=== PATIENT | female | born 1995 | race Caucasian/White ===

== ENCOUNTER 2022-08-22 20:15 | Emergency (ER) | payer OTHER, SELFPAY ==
--- NOTE | ~2022-08-22 | CT_ITS ---
EXAMINATION: CT abdomen pelvis w con DATE: 08/23/2022 00:00 INDICATION: Right-sided abdominal pain, nausea and vomiting TECHNIQUE: Computed tomography (CT) of the abdomen and pelvis was performed with 100 CC Omnipaque 350 intravenous contrast. Automated exposure control and iterative reconstruction technique were employe d. Exam dose: 1620.29 mGy-cm total exam DLP. COMPARISON: None. FINDINGS: The lung bases are clear of infiltrate or consolidation. Normal heart size. No pericardial or pleural effusion. No hepatic space-occupying mass lesion. The gallbladder appears normal. No bile duct or pancreatic du ct dilatation. No pancreatic mass lesion or calcification. Normal splenic size. Normal morphology of the adrenal glands. 9 mm left renal cyst. The kidneys are otherwise unremarkable. No urinary tract calculus or hydrourete ronephrosis. Normal caliber of the abdominal aorta. No intraperitoneal or retroperitoneal or pelvic mass lesion or adenopathy or ascites. Normal appendix. No bowel obstruction, bowel wall thickening, pneumatosis or intraperitoneal free air . Small fat-containing umbilical hernia. Bilateral L5 pars interarticularis defects are noted, without associated spondylolisthesis. Included skeletal structures are otherwise unremarkable. IMPRESSION: Normal appendix Bilateral L5 pars interarticularis defects Reviewed, dictated and finalized at [facility]. Reviewed, dictated and finalized at location A. K ROOM ATTENDANT
[2022-08-22 21:08] VITALS: BP 158/117; PULSE 79; RESP 16; TEMP 36.1; O2SAT 99
[2022-08-22 22:47] LABS: Basophils Absolute Auto 0.1 K/mm3 (0.0-0.1); Basophils Percent Auto 0.4 % (0.2-1.2); Eosinophils Absolute Auto 0.1 K/mm3 (0-0.3); Eosinophils Percent Auto 0.6 % (0-4.4); Hemoglobin 14.4 g/dL (12.0-15.0); Immature Granulocyte Absolute 0.07 K/mm3 (0.00-0.031); Immature Granulocyte Percent A 0.5 % (0-0.5); Lymphocytes Absolute Auto 1.58 K/mm3 (0.9-3.2); Lymphocytes Percent Auto 11.2 % (18.3-44.2); Mean Corpuscular HGB Conc 32.7 g/dl (32-36); Mean Corpuscular Hemoglobin 28.6 pg (26-34); Mean Corpuscular Volume 87.3 fl (80-100); Mean Platelet Volume 11.1 fl (7.4-10.4); Monocytes Absolute Auto 0.4 K/mm3 (0.1-0.6); Neutrophils Absolute Auto 11.9 K/mm3 (1.3-6.7); Neutrophils Percent Auto 84.3 % (45.5-73.1); Platelet Count Result 305 k/mm3 (150-375); Red Blood Count 5.04 M/mm3 (4.2-5.4); White Blood Count 14.1 K/mm3 (4.5-10.0)
[2022-08-22 22:52] LABS: Appearance Urine Clear (Clear); Bilirubin Urine Negative (Negative); Blood Urine Trace-intact (Negative); Color Urine Yellow (Yellow); Glucose Urine UA Negative (Negative); Ketones Urine 1+ mg/dL (Negative); Leukocyte Esterase Ur Negative LEU/UL (Negative); Nitrate Urine Negative (Negative); Protein Urine 1+ mg/dL (Negative); Specific Grav Ur >= 1.030 (1.001-1.035); Urobilinogen Urine 0.2 mg/dL (<2.0)
[2022-08-22 22:56] LABS: Alanine Aminotransferase 21 U/L (6-35); Albumin Level 4.5 g/dL (3.5-5.1); Alkaline Phosphatase 104 U/L (38-126); Anion Gap 11 mmol/L (8-16); Aspartate Amino Transferase 24 U/L (14-36); Bilirubin,Total 0.5 mg/dL (0.2-1.3); Blood Urea Nitrogen 13 mg/dL (7-17); Calcium 8.7 mg/dL (8.4-10.2); Carbon Dioxide 24 mmol/L (22-30); Chloride 103 mmol/L (98-107); Estimated CRCL calculation 148 ml/min; Estimated Glomerular Filt Rate > 60; Glucose 152 mg/dL (65-110); Lipase 47 U/L (23-300); Sodium 138 mmol/L (137-145)
--- NOTE | 2022-08-22 22:56 | ED.ABDPAIN ---
HPI - Abdominal Pain General Chief Complaint: Abdominal Pain Stated Complaint: right sided abdominal pain x 1 hour Time Seen by Provider: 08/22/22 22:30 Source: RN notes reviewed History of Present Illness HPI narrative: Patient presents emergency department from home for abdominal pain. Patient states abdominal pain began approximately 630 PM this evening. The pain is located in the right side the abdomen does not radiate described as sharp and stabbing in nature. States has been associated with nausea and vomiting. Denies any fevers or chills chest pain shortness of breath diarrhea or any other symptoms. States she not take anything for the pain Related Data Allergies Allergy/AdvReac Type Severity Reaction Status Date / Time amoxicillin Allergy Other Verified 08/22/22 20:17 benzocaine Allergy Other Verified 08/22/22 20:17 Review of Systems Review of Systems: Gen.: Denies fevers or chills ENT: Denies congestion Respiratory: Denies shortness of breath or cough CV: Denies chest pain or palpitations GI: D see HPI denies burning, urgency, frequency or hematuria Musculoskeletal: Denies back pain or muscle pain Neuro: Denies numbness, tingling, weakness or focal weakness Skin: Denies rash Except as documented, all other systems reviewed and negative PMFSH Past Medical History Medical History (Updated 08/23/22 @ 01:21 by Juvenal Lott DO) Hypertension Social History Social History (Updated 08/22/22 @ 23:05 by Juvenal Lott DO) Smoking status: Never smoker Exam Narrative: APPEARANCE: No acute distress, nontoxic, resting in bed HEENT: Normocephalic, atraumatic, OMM RESPIRATORY: No respiratory distress, clear to auscultation bilaterally with no rhonchi wheezing or rales CARDIOVASCULAR: RRR s murmur ABDOMINAL: Soft nondistended tender to palpation right upper quadrant and right lower quadrant no tenderness left upper quadrant and left lower quadrant no rebound or guarding MUSCULOSKELETAl: Moves all extremities. No clubbing, cyanosis or edema. NEURO: Awake and alert. Following commands, speech normal, no focal deficits SKIN:: Warm, dry. Normal Color PSYCHIATRIC: Normal affect/mood Course Course Emergency Course: : Discussed with Dr. Waldrop discussed CT results and lab results agrees to plan for discharge at this time patient started on Cipro and Flagyl Patient states that they are feeling much better at this time. States abdominal pain has resolved. Repeat abdominal exam shows the patient's abdomen to be soft and nontender. Discussed with patient results of workup and diagnosis. Discussed need for follow-up with primary care physician, reasons to return to the emergency department in proper use of medication. Patient understands and agrees to current treatment plan Vital Signs Vital signs: Vital Signs Temperature 96.9 F L 08/22/22 21:08 Pulse Rate 79 08/22/22 21:08 Respiratory Rate 16 08/22/22 21:08 Blood Pressure 158/117 H 08/22/22 21:08 Pulse Oximetry 99 08/22/22 21:08 Oxygen Delivery Room Air 08/22/22 21:08 Temperature 98.5 F 08/23/22 00:18 Pulse Rate 69 08/23/22 00:18 Respiratory Rate 18 08/23/22 00:18 Blood Pressure 147/94 H 08/23/22 00:18 Pulse Oximetry 99 08/23/22 00:18 Oxygen Delivery Room Air 08/22/22 21:08 MDM - Abdominal Pain MDM Narrative Medical decision making narrative: Patient's abdomen is soft without significant pain or signs of surgical abdomen on serial exams. Lab and x-ray evaluations are reviewed and patient is felt to be a reasonable candidate for outpatient management. Patient was instructed as to limitations of x-ray and laboratory evaluation and encouraged to return to ED or primary physician for repeat exam in 12 hours if continued or worsening pain Lab Data Result diagrams: 08/22/22 22:41 08/22/22 22:41 Labs: Lab Results 08/22/22 08/22/22 08/22/22 Range/Units 22:41 22:41 22:44 WBC 1
[2022-08-22 22:59] LABS: Bacteria Urine Trace /hpf; Mucus Urine Few /lpf; Squamous Epithelial Cell Urine Rare /hpf (Few); WBC Urine 0-3 /hpf
[2022-08-22 23:00] LABS: Add Urine Microscopic? YES
[2022-08-22] MEDS: SODIUM CHLORIDE 0.9% IV 1,000 ML 999 ML IV CONT (23:12)
[2022-08-22] MEDS: KETOROLAC 30 MG/ML VIAL (*BKC) IV PUSH (23:13)
[2022-08-22] MEDS: ONDANSETRON INJ 4 MG/2 ML VIAL IV PUSH (23:14)
[2022-08-23] VITALS (12 sets, daily range): BP systolic 140–147; BP diastolic 89–94; PULSE 69; RESP 18; TEMP 36.9; O2SAT 98–100
[2022-08-23] MEDS: CIPROFLOXACIN 500 MG TAB PO (01:39)
[2022-08-23] MEDS: metroNIDAZOLE 250 MG TABLET 500 MG PO (01:39)
== END 2022-08-23 01:49 | disposition home or self-care (01) ==
PROVIDERS: Emergency Provider Emergency Medicine; PCP Internal Medicine
DX: K52.9 Noninfective gastroenteritis and colitis, unspecified (principal); I10 Essential (primary) hypertension
CPT/HCPCS: 36415; 74177; 80053; 81001; 81025; 83690; 85025; 96361; 96374; 96375; 99284; A9270; J1885; J2405; J7030; Q9967

== ENCOUNTER 2022-10-01 07:28 | Outpatient (CLI) | payer OTHER, SELFPAY ==
--- NOTE | ~2022-10-01 | NM_ITS ---
EXAMINATION: NM hepatobiliary wo pharm DATE: 10/01/2022 12:34 INDICATION: Right upper quadrant abdominal pain. COMPARISON: CT abdomen and pelvis 08/22/2022 TECHNIQUE: 5.1 mCi Tc-99m mebrofenin (Choletec) was administered intravenously. Scintigraphic images of the abdomen were obtained for one hour. Delayed images were obtained at 3.5 hours. FINDINGS: There is normal clearance of radiotracer from the blood pool. There is homogeneous tracer u ptake by the liver. Activity progresses to the bowel. There is activity in the gallbladder at 3.5 ho urs. IMPRESSION: 1. Patent cystic duct. No evidence of acute cholecystitis. Reviewed, dictated and finalized at location A. FIRST ASSISTANT
== END 2022-10-01 07:29 | disposition home or self-care (01) ==
PROVIDERS: PCP Internal Medicine; Visit Provider Nurse Practitioner Family
DX: R10.11 Right upper quadrant pain (principal)
CPT/HCPCS: 78226; A9537

== ENCOUNTER 2022-10-06 07:37 | Outpatient (CLI) | payer OTHER, SELFPAY ==
--- NOTE | ~2022-10-06 | US_ITS ---
EXAMINATION: US abdomen limited DATE: 10/06/2022 08:13 INDICATION: Right upper quadrant pain TECHNIQUE: Multiple grayscale and Doppler ultrasound images of the abdomen were obtained. COMPARISON: CT, 08/22/2022 FINDINGS: The head and body of the pancreas are normal. The pancreatic tail is obscured by bowel gas. The liver is normal with normal echogenicity and echotexture. No surface nodularity. Normal hepatope jenny flow in the main portal vein. There are multiple stones in the nondistended gallbladder. No gallb ladder wall thickening or pericholecystic fluid. The normal common bile duct measures 5 mm. There was no sonographic [place] sign. IMPRESSION: 1. Cholelithiasis without evidence of cholecystitis. Reviewed, dictated and finalized at location B. ER TENDER
--- NOTE | ~2022-10-06 | XR_ITS ---
EXAMINATION: XR barium swallow w SBFT DATE: 10/06/2022 09:18 INDICATION: Right upper quadrant abdominal pain. TECHNIQUE: The patient drank thick barium, gas-producing crystals, and thin barium. Fluoroscopy of th e esophagus, stomach, and small bowel was performed. Fluoroscopy exposure time was 0.5 minutes. Radio graphs of the abdomen were obtained. The total number of images was 246. COMPARISON: CT abdomen and pelvis 08/22/2022 FINDINGS: ESOPHAGRAM: There is no mass or stricture of the esophagus. Esophageal motility is normal. There is no hiatal her jaymie. There was no gastroesophageal reflux with provocative maneuvers. The stomach shows a normal fold ing pattern. SMALL BOWEL SERIES: The small bowel shows a normal folding pattern. Specifically, the terminal ileum is normal. Transit t erick to the colon was 30 minutes. IMPRESSION: 1. Normal esophagram. 2. Normal small bowel series. Reviewed, dictated and finalized at location A. RETE SMOOTHER
== END 2022-10-06 07:38 | disposition home or self-care (01) ==
PROVIDERS: PCP Internal Medicine; Visit Provider Nurse Practitioner Family
DX: K80.20 Calculus of gallbladder without cholecystitis without obstruction (principal)
CPT/HCPCS: 74240; 76705

== ENCOUNTER 2022-11-15 11:06 | Outpatient (CLI) | payer OTHER, SELFPAY ==
--- NOTE | 2022-11-15 11:35 | ECG_ITS ---
Measurements Intervals [place] Rate: 71 P: 28 GA: 177 QRS: 33 QRSD: 102 T: 38 QT: 380 QTc: 415 Interpretive Statements SINUS RHYTHM NORMAL ECG NO PREVIOUS ECG AVAILABLE FOR COMPARISON Electronically Signed On 11-15-2022 16:55:41 WINDOW DRESSER by Vikram Olivia M.D.
[2022-11-15 11:42] LABS: Alanine Aminotransferase 22 U/L (6-35); Albumin Level 4.1 g/dL (3.5-5.1); Alkaline Phosphatase 71 U/L (38-126); Amylase 52 U/L (30-110); Aspartate Amino Transferase 25 U/L (14-36); Bilirubin,Total 0.6 mg/dL (0.2-1.3); Lipase 41 U/L (23-300)
== END 2022-11-15 11:07 | disposition home or self-care (01) ==
PROVIDERS: PCP Internal Medicine; Visit Provider Surgery
DX: K80.20 Calculus of gallbladder without cholecystitis without obstruction (principal); I10 Essential (primary) hypertension; Z01.818 Encounter for other preprocedural examination
CPT/HCPCS: 36415; 80076; 82150; 83690; 86850; 86900; 86901; 93005

== ENCOUNTER 2022-11-24 01:53 | Day surgery (SDC) | payer OTHER, SELFPAY ==
[2022-11-11 12:47] VITALS: BMI 51.6
--- NOTE | 2022-11-11 12:53 | PC.NURSE ---
Report to the Outpatient Waiting Room, entrance under the green pavilion located off [facility], at time 10:00 on date 11/24/22. Planned Procedure Time: 12:00. Time changes happen often and if your time is changed the preop area will call you the afternoon before. - You and your visitor will be asked to self-screen and do not enter if you have any COVID symptoms. - Only one visitor is requested with a max of two and NO children visitors are allowed at this time. - The patient visitor may be requested to leave or wait in car when not with patient due to distancing restrictions. - A mask is optional within the hospital at this time. Patients may have clear liquids (water, carbonated beverages, clear teas, apple juice) until 3 hours prior to surgery (9:00) with a maximum of 20 ounces. - No food from midnight until time of surgery Take the following medications with a SIP of water the morning of surgery: CARVEDILOL DO NOT STOP ANY OF YOUR OTHER PRESCRIPTION MEDICATIONS PRIOR TO SURGERY EXCEPT THE FOLLOWING Medications to discontinue per physician: N/A Date to take last dose: N/A Please no make-up, nail jordanian, hairspray, perfume, deodorant, or body powder the day of surgery. No jewelry (including any body piercings) or valuables the day of surgery, leave them at home. Please take a shower or bath the night before, or the morning of, surgery with an antibacterial soap (HIBICLENS). Wear comfortable, loose fitting clothing. - Jewelry must be removed prior to entering the operating room. Rings and piercings that are not removed may be cut off. - The hospital will not accept responsibility for valuables. - Please leave all valuables, including medications, at home the day of surgery. If you are going home after surgery, a licensed sprinkling truck driver must drive you home. - NO public transportation without another adult if you receive anesthesia. - We recommend that an adult stay with you for 24 hours following discharge. - We also recommend that you do not drive, make important decision, drink alcoholic beverages, or take any drugs that were not prescribed by your health care provider for at least 24 hours after your discharge time. Follow any additional instructions given to you from your surgeon. If you or anyone in your household have experienced Covid symptoms in the past week, please notify your surgeon or the nurse liaison at the phone number below for possible testing. Telephone instructions given to PT - PAMELA NORIEGA and asked if any additional questions and then verbalized understanding. Patient advised to call surgeon office or pre surgery nurse liaison [phone] if any additional questions.
[2022-11-24] VITALS (8 sets, daily range): BP systolic 139–163; BP diastolic 78–99; PULSE 54–77; RESP 16–25; TEMP 36.3–36.6; O2SAT 97–100
[2022-11-24] MEDS: LACTATED RINGERS 1,000 ML 30 ML IV CONT ×2 (10:45→14:46)
[2022-11-24] MEDS: ACETAMINOPHEN 500 MG TABLET 1000 MG PO (10:51)
[2022-11-24] MEDS: KETOROLAC 15 MG/ML VIAL (*BKC) IV PUSH (10:53)
--- NOTE | 2022-11-24 11:54 | P.PNAN_ITS ---
Anes - Initial Pre Proc Eval Procedure: Operation Date: 11/24/22 12:00 Proposed Procedures p Laparoscopic Cholecystectomy - Alayna Tineo MD Date/Time: 11/24/22 11:54 Surgeon: Alayna Tineo MD Pre Op Diagnosis: Chronic cholecystitis with Cholelithiasis Patient Data Age: 27 Gender: F Height: 1.68 m Weight: 141.6 kg Last Vital Signs Temp 36.6 C 11/24/22 10:14 Pulse 77 11/24/22 10:14 Resp 16 11/24/22 10:14 BP 163/99 H 11/24/22 10:14 Pulse Ox 100 11/24/22 10:14 O2 Del Method Room Air 11/24/22 10:14 Allergies Allergy/AdvReac Type Severity Reaction Status Date / Time amoxicillin Allergy Anaphylaxis Verified 11/24/22 10:17 benzocaine Allergy Anaphylaxis Verified 11/24/22 10:17 Home Medications Medication Instructions Recorded Confirmed Type carvedilol 12.5 mg tablet 12.5 mg PO Q12H 08/29/22 11/24/22 History Patient hx anesthesia problems: none Family hx anesthesia problems: other (grandmother ponv) Results Review: All pre-operative results and documents have been reviewed as part of the pre- operative evaluation. 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 Informed Consent: The patient's anesthetic plan and its attendant risks and benefits were discussed with the patient/family/POA. Questions were solicited and answers provided to the satisfaction of the patient/family/POA.
--- NOTE | 2022-11-24 12:06 | P.HP_ITS ---
H&P: HPI History of Present Illness Date/Time: 11/24/22 12:06 Chief Complaint: abdominal pain Narrative: 27 y/o female presents to office with complaints of RUQ abdominal pain associated with nausea & vomiting. She initially began experiencing symptoms 30 minutes after eating Chik-Gaurav-A a few weeks before . She went to ER day after after having a second attack & had CT done. This showed her gallbladder to be distended however there were no stones. She was given Tramadol & Zofran in the ER. & was discharged home from ER with oral Flagyl & Cipro. She continues to have RUQ abdominal pain although she feels that the symptoms may have improved slightly. She also had outpatient barium swallow w/SBFT performed on 10/06/22 which was normal. Abdominal u/s was also performed on 10/06/22 which showed cholelithiasis. HIDA scan was performed on 10/01/22 which showed patent cystic duct with activity in gallbladder at 3.5 hours. She has refrained from eating fast foods since her last attack. 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 Spiritual care concerns: No Meds Home Medications and Allergies Home Medications Medication Instructions Recorded Confirmed Type carvedilol 12.5 mg tablet 12.5 mg PO Q12H 08/29/22 11/24/22 History Allergies Allergy/AdvReac Type Severity Reaction Status Date / Time amoxicillin Allergy Anaphylaxis Verified 11/24/22 10:17 benzocaine Allergy Anaphylaxis Verified 11/24/22 10:17 Vital Signs Vital Signs - 24 hr 11/24/22 10:14 Temperature 36.6 C Pulse Rate 77 Respiratory Rate 16 Blood Pressure 163/99 H Pulse Oximetry 100 Oxygen Delivery Room Air Exam Const: General: cooperative, comfortable, no acute distress and obese Cardio: Rate: regular rate Rhythm: regular rhythm GI: Inspection: normal to inspection and non-distended GI Palp: No abdominal tenderness, Yes Soft to palpation, No Tenderness to palpation present (GI), No Guarding due to palpation present (GI) and No Rigid due to palpation Assessment and Plan Assessment and plan (1) Cholelithiasis: Code(s): K80.20 - Calculus of gallbladder without cholecystitis without obstruction Status: Acute Assessment and Plan: will setup for cholecystectomy
--- NOTE | 2022-11-24 12:08 | WPDHPUPDATE1 ---
History and Physical Update Update Date/Time: 11/24/22 12:08 History and Physical has been reviewed, including an updated exam of the patient. There are NO changes in the patient's condition. Risks, benefits, and alternatives have been discussed and questions answered. Patient agrees to proceed with procedure.
[2022-11-24] MEDS: ceFAZolin 3 GM/D5W 100 ML 100 ML IVPB (13:03)
[2022-11-24] MEDS: BUPIVACAINE/EPINEPHRINE 0.5% 10 ML VIAL 30 ML INFILTRATE (13:24)
--- NOTE | 2022-11-24 14:04 | W.PM.PROC2 ---
Procedure Note - Detailed Date of Procedure 11/24/22 Pre-op Diagnosis Chronic cholecystitis with cholelithiasis Post-op Diagnosis Same Procedure Performed Laparoscopic cholecystectomy Surgeon Alayna Tineo MD Anesthesia General Indications 27-year-old female presented to the office complaining of postprandial right upper quadrant abdominal pain associated with nausea and vomiting. Workup including imaging significant for cholecystitis, cholelithiasis. Findings Cholecystitis with cholelithiasis Description of Procedure The patient was taken to the operating room placed in the supine position. After adequate induction of general anesthesia, the patient was prepped and draped in normal sterile fashion. A time-out was then performed to verify the patient's identity as well as the procedure being performed. I then made a 5 mm incision in the infraumbilical region. Through this, a Veress needle was placed into the peritoneal cavity and CO2 gas was then insufflated. After adequate pneumoperitoneum was achieved, the Veress needle was removed and a 5 mm optiview trocar was placed through this incision under direct visualization. I then placed the laparoscope through this trocar site and under direct visualization placed a further 12 mm subxiphoid port as well as 2 additional 5 mm ports in the right upper abdomen. The gallbladder was then identified and was noted to be inflamed, distended, and full of gallstones. I was able to place a grasper at the dome of the gallbladder and this was retracted anterior and cephalad up over the liver. A 2nd retractor was then placed at the infundibulum and retracted laterally, this allowed visualization of the triangle of Calot. I then was able to visualize the cystic duct in its entirety from its proximal insertion into the gallbladder, to its distal junction with the common hepatic/common bile duct junction. At this point, I carefully skeletonized the proximal cystic duct with the [place] dissector. I then clipped and transected the proximal cystic duct. Next I visualized the cystic artery. Again the artery was skeletonized, clipped, and transected. I then used the Bovie cautery to take down the peritoneal attachments of the gallbladder off the liver bed. This was somewhat difficult given the amount of inflammation in the posterior space. Once the gallbladder specimen was completely detached, an endo-pouch was placed through the 12 mm port site. I then placed the gallbladder specimen into the Endo pouch and removed the endo-pouch from the 12 mm port site. The specimen will now be sent to pathology for further review. I then copiously irrigated the right upper quadrant. Hemostasis was noted in the liver bed, the clips were noted to be in good position on both the cystic duct stump and the cystic artery stump. No other pathology was noted in the right upper quadrant. I then moved the laparoscope to the subxiphoid port. No iatrogenic injury or other pathology was noted in the lower abdomen. I then closed the 12 mm trocar site under direct visualization using the Charli cone and 0 Vicryl suture. At this point, the abdomen was desufflated and all ports removed. All port sites were then closed with 4.O Monocryl subcuticular sutures. Dermabond was placed on each incision. The patient tolerated the procedure well, was extubated in the operating room postoperative and will be transferred to the recovery room in stable condition Estimated Blood Loss 5 Drains No Packing No Pathology Yes Complications No immediate complications Condition Stable Disposition PACU [facility] Billing Surgery - Charge Forward: Surgery Billing
[2022-11-24] MEDS: fentaNYL CITRATE INJ (*CRX) 100 MCG/2 ML VIAL 25 MCG IV PUSH ×4 (14:28→14:50)
--- NOTE | 2022-11-24 14:42 | SUR.PHASEI ---
1441: Simple mask removed.
[2022-11-24] MEDS: oxyCODONE HCL (*CRX) 5 MG TAB IR PO (15:26)
== END 2022-11-24 16:00 | disposition home or self-care (01) ==
PROVIDERS: PCP Internal Medicine; Visit Provider Surgery
PROC: 0FT44ZZ Resection of Gallbladder, Percutaneous Endoscopic Approach (ICD-10-PCS; CPT 47562; principal; 2022-11-24 12:00)
DX: K80.10 Calculus of gallbladder with chronic cholecystitis without obstruction (principal); I10 Essential (primary) hypertension; E66.01 Morbid (severe) obesity due to excess calories; Z68.43 Body mass index [BMI] 50.0-59.9, adult
CPT/HCPCS: 47562; 36415; 80076; 82150; 83690; 86850; 86900; 86901; 88304; 93005; A9270; J0330; J0690; J1100; J1170; J1885; J2250; J2405; J2704; J2710; J3010; J7030; J7120

== ENCOUNTER 2025-01-07 09:30 | Outpatient (CLI) | payer OTHER, SELFPAY ==
--- OUTSIDE RECORDS SUMMARY | 2025-01-07 09:35 | XMS_ITS | Data Portability ---
Author Organization [facility] Nereyda Posadas Address [address] [facility] [place] [address] Care Team Providers Care Toeing Stockings Name Role Phone DAVID MITCHELL Primary Care Provider Assessment Encounter Date Assessment Date Assessment LastModified by Organization Details LastModified Time 12/24/2023 12/24/2023 Discussed weight loss migraines anxiety and hypertension conservative measures for those still pharmacologic pharmacological therapy for anxiety and her hypertension follow-up in 3 months. [email or web address] Not available 12/24/2023 23:06:59 10/31/2024 10/31/2024 healthy lifestyl e care instructions blood work anxiety discussed hypertension discussed especially since her pressure is 142/92 she was not taking her medicine yet today I urged her to do that regularly and as prescribed she has had a little bit uptake and caffeine use and we will try to get her to walk a little more decrease caffeine watch salt and processed foods she will follow up in 4 months her forms were filled out for work [email or web address] Not available 11/27/2024 16:59:55 Plan of Treatment Reminders Order Date Submit Date Provider Last Modified By Organization Details Last Modified Time Details Appointments ANY 15 2024 09:00A Osmar Mitchell MD Not available Not available Not available Lab CMP, serum or plasma 2024 025 [email or web address] Not available 01/05/2025 10:09:04 CBC w/ auto diff 2024 025 [email or web address] Not available 01/05/2025 10:09:04 lipid panel, serum 2024 025 [email or web address] Not available 01/05/2025 10:09:04 hemoglobi n A1C/hemog lobin total, QN, blood 2024 025 [email or web address] Not available 01/05/2025 10:09:04 Referral None recorded. Procedures None recorded. Surgeries None recorded. Imaging None recorded. Medication Orders None recorded. Patient TargetsNo targets recorded. Patient Instructions Encounter Date Encounter Id Patient Instructions Last Modified By Organization Details Last Modified Time 10/31/2024 [id number] A healthy lifestyle: care instructions Not available 10/31/2024 16:43:59 Reason for Referral None Reported. Problems Name Problem SNOMED Code Status Onset Date Resolution Date Notes Provider Name and Address Organization Details Recorded Time Essential hypertension 89396469 Active 2023 David Mitchell MD Attn: Karol carcamo,[address] [place], [address], [facility] 4 23:07:41 Anxiety 83690385 Active 2023 David Mitchell MD Attn: Karol carcamo,[address] [place], [place], [address] [place] [address] 2, [facility] 4 23:07:41 Obesity 523056075 Active 2023 David Mitchell MD Attn: Karol carcamo,[address] [place], [address], [facility] 4 23:07:42 History of migraine 138809496 Active 2023 David Mitchell MD Attn: Karol carcamo,[address] [place], [address], [facility] 4 23:07:44 Problem Notes None recorded. Procedures Surgical History Date Name Laterality Status Provider Name and Address Organization Details Recorded Time Cholecystectomy completed Nargis Pedro MA [facility] 12/24/2023 14:18:05 Imaging Results None recorded. Procedure Notes None recorded. Medical Equipment None Reported. Allergies Allergen ID Allergen Name Allergen Category Reaction Reaction Severity Criticality Documentation Date Start Date Code Code System Note Provider Name and Address Organization Details Recorded Time 207794 benzocain e medicatio n Not available Not available Not available 11/30/2023 1399 RxNorm turns finge rs blue. Not Available Not Available Not Available Medications Name Sig Start Date Stop Date Status Note LastModified by Organization Details LastModified Time carvedilol 12.5 mg tablet TAKE 1/2 TABLET TWICE A DAY BY MOUTH active Not Available Not Available No t Available azithromycin 250 mg tablet TAKE 2 TABLETS BY MOUTH TODAY, THEN TAKE 1 TABLET DAILY FOR 4 DAYS DIRECTED active Not Available Not Available No t Available fluoxetine 10 mg capsule TAKE 1 CAPSULE BY MOUTH EVERY DAY active Not Available Not Available No t Available Vitals Date Recorded Body height Body mass index (BMI) Body weight Heart rate Body temperature Oxygen saturation Oxygen saturation in Arterial blood by Pulse oximetry Systolic blood pressure Diastolic blood pressure Provider Name and Address Organization Details Last Updated DateTime 4 167.64 cm 55.7 kg/m2 435138. 65 g 80 /min 98.4 [degF] 99 % 99 % 140 mm[Hg] 92 mm[Hg] Nargis Pedro MA [facility] 4 14:22:16 Date Recorded Body height Body mass index (BMI) Body weight Heart rate Oxygen saturation Oxygen saturation in Arterial blood by Pulse oximetry Systolic blood pressure Diastolic blood pressure Provider Name and Address Organization Details Last Updated DateTime 5 167.64 cm 57.8 kg/m2 539637. 51 g 82 /min 98 % 98 % 142 mm[Hg] 92 mm[Hg] Tracey Chaparro MA [facility] 5 14:15:51 Social History Question Answer Notes LastModified by Organizat ion Details LastModified Time Tobacco Smoking Status [facility] 12/24/2023 14:15:27 What Is Your Level Of Alcohol Consumption? Occasional Information not available 12/24/2023 Are You Blind Or Do You Have Difficulty Seeing? No Information n ot available 12/24/2023 In The 14 Days Before Symptom Onset, Have You Had Close Contact With A Laboratory-confirm ed COVID-19 While That Case Was Ill? No Information n ot available 10/31/2024 In The 14 Days Before Symptom Onset, Have You Had Close Contact With A Person Who Is Under Investigation For COVID-19 While That Person Was Ill? No Information not available 10/31/2024 Have You Been To An Area Known To Be High Risk For COVID-19? No Information not available 10/31/2024 Are You Currently Employed? Yes Information not available 10/31/2024 Are You Deaf Or Do You Have Serious Difficulty Hearing? No Information not available 12/24/2023 What Was The Date Of Your Most Recent Tobacco Screening? 10/31/2024 Information not available 10/31/2024 What Is Your Relationship Status? Single Information not available 12/24/2023 Do You Use Your Seat Belt Or Car Seat Routinely? Yes Information not available 10/31/2024 Do You Have Smoke And Carbon Monoxide Detectors In Your Home? Yes Information not available 10/31/2024 Do You Use Any Illicit Or Recreational Drugs? No Information not available 10/31/2024 Do You Use Sunscreen Routinely? Yes Information not available 10/31/2024 Do You Or Have You Ever Used Any Other Forms Of Tobacco Or Nicotine? No Information not available 10/31/2024 Sex: Female Functional Status Question Answer Note LastModified by Organization D etails LastModified Time Are you able to care for yourself? Yes Information n ot available 12/24/2023 Mental Status None recorded. Family History Relationship Description Onset Age of this Age Resolved Age Notes LastModified by Organization Details LastModified Time Brother Attention deficit hyperactivit y disorder [email or web address] Not available 12/23 14:18:24 Brother Hypertensive disorder [email or web address] Not available 2023 14:18:54 Brother Kidney disease renal glycos uria nondia betic [email or web address] Not available 12/24/2023 14:19:43 Father Coronary arterioscler osis [email or web address] Not available 2023 14:18:32 Father Heart disease [email or web address] Not available 2023 14:18:45 Father Hypertensive disorder [email or web address] Not available 2023 14:18:54 Father Hypercholest erolemia [email or web address] Not available 2023 14:19:03 Father Kidney disease renal glycos uria nondia betic apaytonma Not available 12/24/2023 14:19:43 Mother Diabetes mellitus [email or web address] Not available 2023 14:18:39 Mother Hypercholest erolemia [email or web address] Not available 2023 14:19:03 Medical History Condition Response Coronary Artery Disease N Other N High Blood Pressure Y Atrial Fibrillation N Kidney or Bladder Problems N Thyroid Problems N GI Problems N Depression N COPD N Blood Clots N Skin Problems N Anemia N Heart Attack ([place]) N Anxiety Disorder Y Diabetes N Muscle, Joint, or Bone Problems N Seizures/Epilepsy N Acid Reflux (GERD) N Cancer N Stroke N Asthma N Allergies N High Cholesterol N Hepatitis N Liver Disease N Headaches Y Heart Failure N Osteoporosis N Gynecological HistoryNo gynecological history recorded. Obstetrics History GPAL:G 0 P 0 0 0 0 Past Encounters Encounter ID Performer Location Encounter Start Date Encounter Closed Date Diagnosis/Indication Diagnosis SNOMED-CT Code Diagnosis ICD10 Code Diagnosis Note [id number] David Mitchell MD [facility] [place] [address] [place] [address] 12/24/2023 14:05:36 12/24/2023 15:06:48 Essential hypertension 86656929 I10 Anxiety 97071459 F41.9 Obesity 748426629 E66.9 History of migraine 1614 93357 Z86.69 [id number] David Mitchell MD [facility] [place] [address] [place] [phone] 10/31/2024 14:05:46 10/31/2024 14:52:06 Body mass index 40+ - severely obese 189212655 Z68.43 Morbid obesity 583132881 E66.01 Anxiety 46517073 F41.9 Essential hypertension 07572379 I10 Health Concerns Section Related Observation LastModified by Organization Detai ls LastModified Time None Recorded Concern Status LastModified by Organization Details LastModified Time None Recorded Advance Directives Directive None Recorded Payers Encounter Date Sequence Insurance Name Policy Number Policy Crawford Covered Member ID Crawford Member ID Guarantor Name 12/24/2023 1 [facility] (MEDICARE REPLACEMENT/A DVANTAGE - HMO) [id number] Krysta Sullivan [id number] Krysta Sullivan 10/31/2024 1 [facility] (PPO) [id number] Krysta Sullivan [id number] Krysta Sullivan Notes Date Note Type Note Provider Name and Address Organization Details Recorded Time 12/24/2023 text/html Hypertension blo od pressure suboptimal but a lot of stress at work headaches migraines stable obesity putting on some weight David Mitchell MD Attn: [address] [facility], [place], [address], [facility] 12/24/2023 23:08:02 10/31/2024 text/html hypertension blo od pressure noted she has been under a lot of stress at work needs some forms filled out for that as well. Anxiety up a little bit no SI or HI David Mitchell MD Attn: [address] [facility], [place], [address], [facility] 11/27/2024 17:00:30 OBGyn Episode No OBEpisode recorded.
--- OUTSIDE RECORDS SUMMARY | 2025-01-07 09:35 | XMS_ITS | Data Portability ---
Author Organization [facility] [employer] [place], Main Office Address [address] [place] [address] Assessment Encounter Date Assessment Date Assessment LastModified by Organization Details LastModified Time 01/08/2023 01/08/2023 Continue current therapy try some weight loss see me back in 4 months [email or web address] Not available 01/17/2023 21:54:48 04/30/2023 04/30/2023 Fluoxetine 10 mg daily side effects discussed blood work talked about injectable weight loss medications she is going to explore those I will see her back in 6 weeks [email or web address] Not available 04/30/2023 22:58:06 06/11/2023 06/11/2023 Caloric restriction continue carvedilol for blood pressure fluoxetine for anxiety follow-up in 6 months [email or web address] Not available 06/11/2023 14:13:19 Plan of Treatment Reminders Order Date Submit Date Provider Last Modified By Organization Details Last Modified Time Details Appointments None recorded . Lab HbA1c (hemoglo bin A1c), blood 023 04/30/20 23 [facility] (Lab), [address] [place], [address], 4 11:20:37 T3, free, serum or plasma 023 04/30/20 23 [facility] (Lab), [address] [place], [address], 3 20:24:55 TSH, serum or plasma 023 04/30/20 23 [facility] (Lab), [address] [place], [address], 3 20:27:08 T4, free, serum 023 04/30/20 [facility] (Lab), [address] [place], [address], 3 20:24:44 CMP, serum or plasma 023 04/30/20 [facility] (Lab), [address] [place], [address], 3 20:01:59 lipid panel, serum 023 04/30/20 [facility] (Lab), [address] [place], [address], 20:02:01 CBC w/ auto diff 023 04/30/20 [facility] (Lab), [address] [place], [address], 3 18:34:44 Referral None recorded . Procedures None recorded . Surgeries None recorded . Imaging None recorded . Medication Orders None recorded . Patient TargetsNo targets recorded. Patient InstructionsNo instructions recorded. Reason for Referral None Reported. Results Created Date Observation Date Name Description Value Unit Range Abnormal Flag Note LastModifiedBy Organization Detail LastModifiedTime 04/30/2004/30/2023 CBC/C OMPLE TE BLD COUNT W/DIF F white blood cells 7.6 x10'3 /uL 4.2-10 .8 Not Available [facility] (Lab) [address] [place], [address], 04/30/2023 18:34:44 04/30/20 23 04/30/2023 CBC/C OMPLE TE BLD COUNT W/DIF F red blood cells 4.85 x10'6 /uL 3.80-5 .20 Not Available [facility] (Lab) [address] [place], [address], 04/30/2023 18:34:44 04/30/20 23 04/30/2023 CBC/C OMPLE TE BLD COUNT W/DIF F hemoglobin 13.6 g/dL 12.0-1 5.6 Not Available [facility] (Lab) [address] [place], [address], 04/30/2023 18:34:44 04/30/20 23 04/30/2023 CBC/C OMPLE TE BLD COUNT W/DIF F hematocrit 42.5 % 35.7-4 5.7 Not Available [facility] (Lab) [address] [place], [address], 04/30/2023 18:34:44 04/30/20 23 04/30/2023 CBC/C OMPLE TE BLD COUNT W/DIF F mean red cell volume 87.6 fL 82.0-9 9.0 Not Available [facility] (Lab) [address] [place], [address], 04/30/2023 18:34:44 04/30/20 23 04/30/2023 CBC/C OMPLE TE BLD COUNT W/DIF F mean red cell hemoglobin 28.0 pg 27.0-3 3.0 Not Available [facility] (Lab) [address] [place], [address], 04/30/2023 18:34:44 04/30/20 23 04/30/2023 CBC/C OMPLE TE BLD COUNT W/DIF F mean RBC HGB concentratio n 32.0 g/dL 31.0-3 6.0 Not Available [facility] (Lab) [address] [place], [address], 04/30/2023 18:34:44 04/30/20 23 04/30/2023 CBC/C OMPLE TE BLD COUNT W/DIF F red cell distribution width 13.0 % 11.8-1 5.5 Not Available [facility] (Lab) [address] [place], [address], 04/30/2023 18:34:44 04/30/20 23 04/30/2023 CBC/C OMPLE TE BLD COUNT W/DIF F platelets 281 x10'3 /uL 150-40 0 Not Available [facility] (Lab) [address] [place], [address], 04/30/2023 18:34:44 04/30/20 23 04/30/2023 CBC/C OMPLE TE BLD COUNT W/DIF F mean platelet volume 11.7 fL 9.0-12 .4 Not Available [facility] (Lab) [address] [place], [address], 04/30/2023 18:34:44 04/30/20 23 04/30/2023 CBC/C OMPLE TE BLD COUNT W/DIF F neutrophils 61.3 % 39.0-7 2.0 Not Available [facility] (Lab) [address] [place], [address], 04/30/2023 18:34:44 04/30/20 23 04/30/2023 CBC/C OMPLE TE BLD COUNT W/DIF F lymphocytes 27.4 % 16.0-4 7.0 Not Available [facility] (Lab) [address] [place], [address], 04/30/2023 18:34:44 04/30/20 23 04/30/2023 CBC/C OMPLE TE BLD COUNT W/DIF F monocytes 7.4 % 5.0-12 .0 Not Available [facility] (Lab) [address] [place], [address], 04/30/2023 18:34:44 04/30/20 23 04/30/2023 CBC/C OMPLE TE BLD COUNT W/DIF F eosinophils 2.6 % 1.0-7. 0 Not Available [facility] (Lab) [address] [place], [address], 04/30/2023 18:34:44 04/30/2004/30/2023 CBC/C OMPLE TE BLD COUNT W/DIF F basophils 0.9 % 0.0-2. 0 Not Available [facility] (Lab) [address] [place], [address], 04/30/2023 18:34:44 04/30/20 23 04/30/2023 CBC/C OMPLE TE BLD COUNT W/DIF F immature granulocytes 0.4 % 0.00-0 .50 Not Available [facility] (Lab) [address] [place], [address], 04/30/2023 18:34:44 04/30/20 23 04/30/2023 CBC/C OMPLE TE BLD COUNT W/DIF F neutrophils, absolute count 4.63 x10'3 /uL 1.5-8. 0 Not Available [facility] (Lab) [address] [place], [address], 04/30/2023 18:34:44 04/30/20 23 04/30/2023 CBC/C OMPLE TE BLD COUNT W/DIF F lymphocytes, absolute count 2.07 x10'3 /uL 1.07-3 .43 Not Available [facility] (Lab) [address] [place], [address], 04/30/2023 18:34:44 04/30/20 23 04/30/2023 CBC/C OMPLE TE BLD COUNT W/DIF F monocytes, absolute count 0.56 x10'3 /uL 0.29-0 .99 Not Available [facility] (Lab) [address] [place], [address], 04/30/2023 18:34:44 04/30/20 23 04/30/2023 CBC/C OMPLE TE BLD COUNT W/DIF F eosinophils, absolute count 0.20 x10'3 /uL 0.02-0 .53 Not Available [facility] (Lab) [address] [place], [address], 04/30/2023 18:34:44 04/30/20 23 04/30/2023 CBC/C OMPLE TE BLD COUNT W/DIF F basophils, absolute count 0.07 x10'3 /uL 0.01-0 .08 Not Available [facility] (Lab) [address] [place], [address], 04/30/2023 18:34:44 04/30/20 23 04/30/2023 CBC/C OMPLE TE BLD COUNT W/DIF F immature granulocytes ,absolute 0.03 x10'3 /uL 0.00-0 .05 Not Available [facility] (Lab) [address] [place], [address], 04/30/2023 18:34:44 04/30/20 23 04/30/2023 CBC/C OMPLE TE BLD COUNT W/DIF F nucleated red blood cells 0.0 % -0 Not Available [facility] (Lab) [address] [place], [address], 04/30/2023 18:34:44 04/30/20 23 04/30/2023 CBC/C OMPLE TE BLD COUNT W/DIF F NRBC# 0.00 x10'3 /uL Not Available [facility] (Lab) [address] [place], [address], 04/30/2023 18:34:44 04/30/20 23 04/30/2023 COMPR EHENS CHRISTOPHER METAB OLIC PANEL sodium 139 mmol/ L 137-14 5 Not Available [facility] (Lab) [address] [place], [address], 04/30/2023 20:01:59 04/30/20 23 04/30/2023 COMPR EHENS CHRISTOPHER METAB OLIC PANEL potassium 4.6 mmol/ L 3.5-5. 1 Not Available [facility] (Lab) [address] [place], [address], 04/30/2023 20:01:59 04/30/20 23 04/30/2023 COMPR EHENS CHRISTOPHER METAB OLIC PANEL chloride 102 mmol/ L 98-107 Not Available [facility] (Lab) [address] [place], [address], 04/30/2023 20:01:59 04/30/20 23 04/30/2023 COMPR EHENS CHRISTOPHER METAB OLIC PANEL carbon dioxide 30 mmol/ L 22-30 Not Available [facility] (Lab) [address] [place], [address], 04/30/2023 20:01:59 04/30/20 23 04/30/2023 COMPR EHENS CHRISTOPHER METAB OLIC PANEL anion gap 11.6 mmol/ L 14-22 low Not Available [facility] (Lab) [address] [place], [address], 04/30/2023 20:01:59 04/30/20 23 04/30/2023 COMPR EHENS CHRISTOPHER METAB OLIC PANEL glucose 76 mg/dL 70-99 Not Available [facility] (Lab) [address] [place], [address], 04/30/2023 20:01:59 04/30/20 23 04/30/2023 COMPR EHENS CHRITSOPHER METAB OLIC PANEL BUN 11 mg/dL 8-19 Not Available [facility] (Lab) [address] [place], [address], 04/30/2023 20:01:59 04/30/20 23 04/30/2023 COMPR EHENS CHRISTOPHER METAB OLIC PANEL creatinine 0.76 mg/dL 0.66-1 .25 Not Available [facility] (Lab) [address] [place], [address], 04/30/2023 20:01:59 04/30/20 23 04/30/2023 COMPR EHENS CHRISTOPHER METAB OLIC PANEL GFR >60 Refer ence Range : Williams ge GFR Healt hy Adult : >60 mL/mi n/1.7 3 m2 Chron ic Kidne y Disea se: 15-60 mL/mi n/1.7 3 m2 Kidne y Failu re: <15/m L/min /1.73 m2 www.n iddk. nih.g ov The MDRD study equat ion has not been valid ated in child trevon <18 years of age; pregn ant women ; the elder ly >85 years of age; or in some racia l or ethni c subgr oups, such as Hispa nics. Outsi de the valid ated ruben eters , estim ated GFR is less accur ate, requi ring clini wood judgm ent on a case- by-ca se basis . Clini wood inter preta tion for other races and ages must be made by the clini greta. The MDRD study equat ion has not been valid ated for the evalu ation of serum creat inine relat ed to nutri simone l statu s or medic ation usage . For perso ns <18 years of age, a pedia tric GFR calcu lator is avail able on the [facility] websi te: https ://abrahan head.samy cosby.o rg/pr ofess ional s/kdo qi/gf r_cal culat or Not Available [facility] (Lab) [address] [place], [address], 04/30/2023 20:01:59 04/30/20 23 04/30/2023 COMPR EHENS CHRISTOPHER METAB OLIC PANEL alkaline phosphatase 82 U/L 38-126 Not Available [facility] (Lab) [address] [place], [address], 04/30/2023 20:01:59 04/30/20 23 04/30/2023 COMPR EHENS CHRISTOPHER METAB OLIC PANEL alanine aminotransfe rase 21 U/L 0-35 Not Available [facility] (Lab) [address] [place], [address], 04/30/2023 20:01:59 04/30/20 23 04/30/2023 COMPR EHENS CHRISTOPHER METAB OLIC PANEL aspartate aminotransfe rase 24 U/L 15-37 Not Available [facility] (Lab) [address] [place], [address], 04/30/2023 20:01:59 04/30/20 23 04/30/2023 COMPR EHENS CHRISTOPHER METAB OLIC PANEL bilirubin, total 0.40 mg/dL 0.20-1 .30 Not Available [facility] (Lab) [address] [place], [address], 04/30/2023 20:01:59 04/30/20 23 04/30/2023 COMPR EHENS CHRISTOPHER METAB OLIC PANEL calcium 9.2 mg/dL 8.4-10 .2 Not Available [facility] (Lab) [address] [place], [address], 04/30/2023 20:01:59 04/30/20 23 04/30/2023 COMPR EHENS CHRISTOPHER METAB OLIC PANEL total protein 7.7 g/dL 6.3-8. 2 Not Available [facility] (Lab) [address] [place], [address], 04/30/2023 20:01:59 04/30/20 23 04/30/2023 COMPR EHENS CHRISTOPHER METAB OLIC PANEL albumin 4.4 g/dL 3.4-5. 0 Not Available [facility] (Lab) [address] [place], [address], 04/30/2023 20:01:59 04/30/20 23 04/30/2023 COMPR EHENS CHRISTOPHER METAB OLIC PANEL globulin 3.3 g/dL 2.6-4. 2 Not Available [facility] (Lab) [address] [place], [address], 04/30/2023 20:01:59 04/30/20 23 04/30/2023 COMPR EHENS CHRISTOPHER METAB OLIC PANEL A/G ratio 1.3 ratio 1.0-2. 0 Not Available [facility] (Lab) [address] [place], [address], 04/30/2023 20:01:59 04/30/20 23 04/30/2023 LIPID PANEL cholesterol 186 mg/dL 140-19 9 NIH NAHOMI NSUS RECOM MENDA TION FOR CORBY STERO L: ADULT CHILD LOW RISK: <200 <170 BORDE RLINE : <200- 239 ----- HIGH RISK: >240 >200 Not Available [facility] (Lab) [address] [place], [address], 04/30/2023 20:02:01 04/30/20 23 04/30/2023 LIPID PANEL triglyceride s 133 mg/dL 0-150 NIH NAHOMI NSUS REPOR T RECOM MENDA TION FOR TRIGL YCERI ARELIS: ADULT CHILD LOW RISK: <150 ----- BODER LINE: 150-1 99 ----- HIGH RISK: >200 ----- Not Available [facility] (Lab) [address] [place], [address], 04/30/2023 20:02:01 04/30/20 23 04/30/2023 LIPID PANEL HDL cholesterol 45 mg/dL 40- Not Available [facility] (Lab) [address] [place], [address], 04/30/2023 20:02:01 04/30/2004/30/2023 LIPID PANEL LDL cholesterol, calculated 114 mg/dL 0-130 NIH NAHOMI NSUS REPOR T RECOM MENDA TIONS FOR LDL: ADULT CHILD LOW RISK <130 <110 (OPTI MAL LDL) <100 ----- BORDE RLINE : 130-1 59 ----- HIGH RISK: >160 >130 A TRIGL YCERI DE RESUL T >400 INVAL IDATE S THE CALCU LATIO N FOR LDL FRACT IONAT ION - THE LDL RESUL T WILL NOT BE REPOR APRYL. Not Available [facility] (Lab) [address] [place], [address], 04/30/2023 20:02:01 04/30/20 23 04/30/2023 T4 FREE free T4 1.14 NG/dL 0.78-2 .19 Not Available [facility] (Lab) [address] [place], [address], 04/30/2023 20:24:44 04/30/20 23 04/30/2023 T3 FREE free T3 4.0 pg/mL 2.77-5 .27 Not Available [facility] (Lab) [address] [place], [address], 04/30/2023 20:24:55 04/30/20 23 04/30/2023 TSH thyroid-stim ulating hormone 1.730 uIU/m L 0.465- 4.680 Not Available [facility] (Lab) [address] [place], [address], 04/30/2023 20:27:08 04/30/20 23 04/30/2023 HEMOG LOBIN A1C HA1C 5.1 % 4.0-6. 0 Diabe real Scree jorge alberto Crite lin: <5.7% Consi stent with absen ce of diabe real 5.7-6 .4% Consi stent with incre ased risk for diabe real (pred iabet es) >OR=6 .5% Consi stent with diabe real REFER ENCE: Diabe real Care 2016, 39(Huizar ppl.1 ):s13 -s22 Not Available [facility] (Lab) [address] [place], [address], 04/30/2023 20:54:01 08/23/20 22 08/23/2022 CT, abdom en + pelvi s, w/ contr ast No observ ation record ed. [id number], [address], 11/26/2022 15:21:19 12/30/19 23 10/01/2022 NM, hepat obili anirudh scan No observ ation record ed. [address], [address], 01/09/2023 11:59:45 Result Notes None recorded. Problems Name Problem SNOMED Code Status Onset Date Resolution Date Notes Provider Name and Address Organization Details Recorded Time Obesity 801350143 Active 2021 Not Available [facility] 3 04:38:08 Essential hypertension 37715470 Active 2021 Not Available [facility] 3 04:38:08 Palpitations 73561036 Active 2021 Not Available [facility] 3 04:38:08 Hyperglycemia 73520879 Active 2021 Not Available [facility] 3 04:38:08 Sore throat 151200908 Active 2022 Not Available [facility] 3 04:38:08 Anxiety 47262901 Active 2022 Not Available [facility] 3 04:38:08 Problem Notes None recorded. Procedures Surgical History Date Name Laterality Status Provider Name and Address Organization Details Recorded Time 11/24/19 23 Cholecystectomy completed FRANCINE Islas [place] - [place] [facility] 01/08/2023 14:25:56 Imaging Results Imaging Date Name Status LastModified by Organization Details LastModified Time 08/23/2022 CT, abdomen + pelvis, w/ contrast completed [id number], [address], 11/26/2022 15:21:19 10/01/2022 NM, hepatobiliary scan completed [address], [address], 01/09/2023 11:59:45 Procedure Notes None recorded. Medical Equipment None Reported. Allergies Allergen ID Allergen Name Allergen Category Reaction Reaction Severity Criticality Documentation Date Start Date Code Code System Note Provider Name and Address Organization Details Recorded Time 20137 benzocain e medicatio n flushing Not available Not available 11/26/2022 1399 RxNorm finge rtips turne d purpl e Not Available [facility] 3 15:21:18 54462 Amoxil medicatio n Not available Not available Not available 03/09/202328506 9 RxNorm Vania ramsey RN null, [place] - [place] [employer] [facility] 3 10:24:47 Medications Name Sig Start Date Stop Date Status Note LastModified by Organization Details LastModified Time amoxicillin 500 mg capsule TK 1 C PO BID WF OR MILK 03/27 completed Not Available Not Available Not Available carvedilol 12.5 mg tablet TAKE 1/2 TABLET BY MOUTH TWICE A DAY 2023 active Not Available Not Available Not Avai lable azithromyci n 250 mg tablet TAKE 2 TABLETS (500 MG) BY ORAL ROUTE ONCE DAILY FOR 1 DAY THEN 1 TABLET (250 MG) BY ORAL ROUTE ONCE DAILY FOR 4 DAYS 04/30 completed Not Available Not Available Not Available hydrocodone 5 mg-acetamin ophen 325 mg tablet TAKE 1 TABLET BY MOUTH EVERY 6 HOURS NEEDED FOR PAIN 01/08 completed Not Available Not Available Not Available metronidazo le 500 mg tablet TAKE 1 TABLET BY MOUTH EVERY 8 HOURS FOR 10 DAYS. 09/04 completed Not Available Not Available Not Available ciprofloxac in 500 mg tablet TAKE 1 TABLET BY MOUTH EVERY 12 HOURS 09/04 completed Not Available Not Available Not Available amoxicillin 500 mg tablet Take 1 tablet 3 times a day by oral route for 7 days. 12/15 completed Not Available Not Available Not Available hydrocodone 7.5 mg-acetamin ophen 325 mg tablet 03/27 completed Not Available Not Available Not Available fluoxetine 10 mg capsule TAKE 1 CAPSULE BY MOUTH EVERY DAY 2022 active Not Available Not Available Not Avai lable ibuprofen 600 mg tablet TAKE 1 TABLET BY MOUTH THREE TIMES DAILY NEEDED FOR PAIN. 09/04 completed Not Available Not Available Not Available methylpredn isolone 4 mg tablets in a dose pack 03/27 completed Not Available Not Available Not Available amoxicillin 875 mg-potassiu m clavulanate 125 mg tablet 03/27 completed Not Available Not Available Not Available Auroguard 5.4 %-1.4 % ear drops 12/19 completed Not Available Not Available Not Available ID NOW COVID-19 Test Kit TEST DIRECTED TODAY 09/04 completed Not Available Not Available Not Available Vitals Date Recorded Body mass index (BMI) Body height Heart rate Body temperature Body weight Systolic blood pressure Diastolic blood pressure Provider Name and Address Organization Details Last Updated DateTime 2 53.7 kg/m2 167.64 cm 78 /min 97.2 [degF] 121114. 26 g 130 mm[Hg] 90 mm[Hg] Not Available [facility] 3 15:19:32 Date Recorded Body mass index (BMI) Body height Heart rate Body temperature Body weight Systolic blood pressure Diastolic blood pressure Provider Name and Address Organization Details Last Updated DateTime 2 53.7 kg/m2 167.64 cm 82 /min 98.7 [degF] 652743. 26 g 130 mm[Hg] 72 mm[Hg] Not Available [facility] 3 15:19:32 Date Recorded Body height Body mass index (BMI) Body weight Body temperature Heart rate Systolic blood pressure Diastolic blood pressure Provider Name and Address Organization Details Last Updated DateTime 3 167.64 cm 53.3 kg/m2 406752. 48 g 98 [degF] 80 /min 144 mm[Hg] 98 mm[Hg] [facility] [place] [employer] [facility] 3 14:30:56 Date Recorded Body height Body temperature Heart rate Body mass index (BMI) Body weight Systolic blood pressure Diastolic blood pressure Provider Name and Address Organization Details Last Updated DateTime 3 167.64 cm 97.8 [degF] 78 /min 54.2 kg/m2 603976. 04 g 138 mm[Hg] 90 mm[Hg] FRANCINE Islas Myles [place] [employer] [facility] 3 14:21:20 Date Recorded Body height Body temperature Heart rate Body mass index (BMI) Body weight Systolic blood pressure Diastolic blood pressure Provider Name and Address Organization Details Last Updated DateTime 3 167.64 cm 97.5 [degF] 74 /min 53.4 kg/m2 396892. 07 g 120 mm[Hg] 84 mm[Hg] Emi Elizondo [employer] [facility] [employer] [facility] 14:04:02 Social History Question Answer Notes LastModified by Organization Details LastModified Time Tobacco Smoking Status Never Smoker Steven Hillmariam FRANCINE null, [facility] [employer] [facility] 01/08/2023 14:20:30 Do You Have An Advance Directive? No [id number] Information not available 11/26/2022 What Is Your Level Of Alcohol Consumption? Occasional [id number] Information not available 11/26/2022 What Is Your Level Of Caffeine Consumption? Moderate [id number] Information not available 11/26/2022 In The 14 Days Before Symptom Onset, Have You Had Close Contact With A Laboratory-confi rmed COVID-19 While That Case Was Ill? No Information not available 01/08/2023 In The 14 Days Before Symptom Onset, Have You Had Close Contact With A Person Who Is Under Investigation For COVID-19 While That Person Was Ill? No Information not available 01/08/2023 What Type Of Diet Are You Following? REGULAR [id number] Information not available 11/26/2022 What Is The Highest Grade Or Level Of School You Have Completed Or The Highest Degree You Have Received? 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 No Information not available 01/08/2023 What Is The Fluoride Status Of Your Home? Unknown Information not available 01/08/2023 Are There Any Guns Present In Your Home? No Information not available 01/08/2023 Do You Use Insect Repellent Routinely? No Information not available 01/08/2023 Where Do You Live? SingleLevelHouse Information not available 01/08/2023 Do You Have A Medical Power Of Change Booth Attendant? No Information not available 01/08/2023 What Was The Date Of Your Most Recent Tobacco Screening? 06/11/2023 [email or web address] Information not available 06/11/2023 Have You Ever Been Counseled For Unhealthy Alcohol Use? No Information not available 01/08/2023 Do You Have Any Pets? Yes Information not available 01/08/2023 What Is Your Relationship Status? Single [id number] Information not available 11/26/2022 Do You Use Your Seat Belt Or Car Seat Routinely? Yes Information not available 01/08/2023 Do You Have Smoke And Carbon Monoxide Detectors In Your Home? Yes Information not available 01/08/2023 Are You Passively Exposed To Smoke? No Information not available 01/08/2023 Are There Any Smokers In Your House? No Information not available 01/08/2023 What Types Of Sporting Activities Do You Participate In? None Information not available 01/08/2023 Do You Feel Stressed (tense, Restless, Nervous, Or Anxious, Or Unable To Sleep At Night)? [id number] Information not available 01/08/2023 Do You Use Any Illicit Or Recreational Drugs? No Information not available 01/08/2023 Do You Use Sunscreen Routinely? Yes Information not available 01/08/2023 Has Tobacco Cessation Counseling Been Provided? No Not Needed-ne nick Smoked Information not available 01/08/2023 Have You Recently Traveled Abroad? No Information not available 01/08/2023 Do You Have Any Dietary Restrictions? No Information not available 01/08/2023 Do You Or Have You Ever Used Any Other Forms Of Tobacco Or Nicotine? No Information not available 01/08/2023 Sex: Female Functional Status Question Answer Note LastModified by Organizat ion Details LastModified Time What is your exercise level? Occasional [id number] Information not available 11/26/2022 Mental Status None recorded. Family History Relationship Description Onset Age of this Age Resolved Age Notes LastModified by Organization Details LastModified Time Mother Diabetes mellitus [id number] Not available 11/26/2022 15:18:21 Mother Hypercholest erolemia [id number] Not available 11/26/2022 15:18:21 Mother Thrombocytos is [email or web address] Not available 2022 14:20:27 Mother Anxiety [email or web address] Not available 14:20:27 Father Hypercholest erolemia [id number] Not available 11/26/2022 15:18:21 Father Coronary artery bypass grafts x 4 58 [email or web address] Not available 01/08 14:20:27 Father Hypertensive disorder [email or web address] Not available 12/27 14:28:18 Brother Hypertensive disorder [email or web address] Not available 12/27 14:28:22 Medical History Condition Response NERVE DISEASE N BLINDNESS N RHEUMATIC FEVER N KIDNEY STONES N BLADDER PROBLEMS N MRSA N OTHER # 1 N POLIO N LUNG DISEASE/DISORDER N HISTORY OF DRUG ABUSE N RADIATION / CHEMOTHERAPY N COPD N Other # 2 N BLOOD DISEASES N EAR OR HEARING PROBLEMS N MUMPS N SHINGLES N DEPRESSION (INCLUDING POST ) N BOWEL PROBLEMS N STROKE/TIA N ULCERS N BENIGN PROSTATIC HYPERPLASIA N MEASLES N HYPOTENSION N MYOCARDIAL INFARCTION N OBESITY N GERD/NAUSEA N ANEURYSM N URINARY/BLADDER/KIDNEY PROBLEMS N CORONARY ARTERY DISEASE (CAD) N ADDICTION CONCERNS N Impotence N ENDOMETRIOSIS N USE OF BLOOD THINNERS N SKIN PROBLEMS N GASTROINTESTINAL DISORDER N PERIPHERAL VASCULAR DISEASE N MUSCLE,JOINT OR BONE PROBLEMS N GASTROINTESTINAL BLEEDING N BLOOD CLOTS N ASTHMA N CATARACTS N ERECTILE DYSFUNCTION N VARICOSITIES N GI PROBLEMS N Low Testosterone N INFERTILITY N AIDS/HIV N CHEMOTHERAPY / RADIATION N LIVER DISEASE N MALE HYPOGONADISM N HYPERTENSION N Deficiency N TOURETTE'S N ANXIETY DISORDER N BLOOD TRANSFUSION N ANEMIA/BLOOD DISORDER N CHRONIC EAR INFECTIONS N BRONCHITIS N TUBERCULOSIS N GLAUCOMA N FOOT PROBLEM N DIVERTICULITIS N SLEEP APNEA N CHICKENPOX N INFECTIOUS DISEASE N PROSTATE N HEART ARRHYTHMIA N INSOMNIA N HIGH CHOLESTEROL / HYPERLIPIDEMIA N EYE PROBLEMS N HYPERTHYROIDISM N EDEMA N CHRONIC PAIN SYNDROME N HYPOTHYROIDISM N CAROTID BLOCKAGE N CONSTIPATION N BACK / NECK PROBLEMS N HAVE YOU BEEN HOSPITALIZED OR SEEN IN [facility] IN THE PAST YEAR ? Y ATHEROSCLEROSIS N BREAST PROBLEMS N DIALYSIS N ECZEMA N OSTEOPOROSIS N ARTHRITIS N NO SIGNIFICANT PAST MEDICAL HISTORY N APPENDICITIS N DIABETES, TYPE N BAD TEETH N ENT N HEARTBURN / REFLUX N AUTISM SPECTRUM DISORDER (ASD) N HEPATITIS / LIVER DISEASE N GOUT N SLEEP DISORDER N ALZHEIMER'S DISEASE N Brain Problems N DEMENTIA N HERPES N SEIZURES/EPILEPSY N HEADACHES/MIGRAINES N VASCULAR DISEASE N PACEMAKER N Blood Disorder N DIZZINESS N HEART DISEASE/HEART PROBLEMS N KIDNEY DISEASE N MULTIPLE SCLEROSIS N CANCER: SPECIFY N CARDIAC ARRHYTHMIA N ATRIAL FIBRILLATION N Gall Stones N PULMONARY EMBOLISM N AUTOIMMUNE DISEASE N Gynecological HistoryNo gynecological history recorded. Obstetrics History GPAL:G 0 P 0 0 0 0 Immunizations Vaccine Type Date Status Note Provider Nam e and Address Organization Details Recorded Time COVID-19, mRNA, LNP-S, PF, 100 mcg/0.5mL dose or 50 mcg/0.25mL dose 1 completed Not Available [facility] 05/01/2023 04:38:08 COVID-19, mRNA, LNP-S, PF, 100 mcg/0.5mL dose or 50 mcg/0.25mL dose 1 completed Not Available [facility] 05/01/2023 04:38:08 TST-PPD intradermal 6 completed Not Available [facility] 05/01/2023 04:38:08 Tdap 9 completed Not Available [facility] 05/01/2023 04:38:08 Past Encounters Encounter ID Performer Location Encounter Start Date Encounter Closed Date Diagnosis/Indication Diagnosis SNOMED-CT Code Diagnosis ICD10 Code Diagnosis Note [id number] [facility] [address] [address] 11/21/2021 00:00:00 11/21/2021 22:30:45 [id number] [facility] [address] [address] 12/02/2021 00:00:00 12/28/2021 17:13:34 [id number] [facility] [address] [address] 04/07/2022 00:00:00 04/13/2022 10:46:02 [id number] [facility] [place] [address] 09/04/2022 00:00:00 09/04/2022 21:05:07 [id number] David Mitchell MD [facility] [place] [address] 01/08/2023 14:19:26 01/08/2023 15:09:28 Essential hypertension 75803780 I10 [id number] David Mitchell MD [facility] [place] [address] [facility] [address] [address] 04/30/2023 14:14:56 04/30/2023 15:00:35 Essential hypertension 58067744 I10 Hyperglycemia 70263461 R 73.9 Anxiety 38661023 F41.9 [id number] [address] MD [facility] Internal Med [place] [address] [facility] , [place] [address] 06/11/2023 13:57:53 06/11/2023 14:10:50 Essential hypertension 46866666 I10 Anxiety 42980129 F41.9 Obesity 328180686 E66.9 Health Concerns Section Related Observation LastModified by Organization Detai ls LastModified Time None Recorded Concern Status LastModified by Organization Details LastModified Time None Recorded Advance Directives Directive N: Payers Encounter Date Sequence Insurance Name Policy Number Policy Crawford Covered Member ID Crawford Member ID Guarantor Name 01/08/2023 1 [facility] [id number] Krysta Sullivan [id number] Krysta Sullivan 04/30/2023 1 [facility] [id number] Krysta Sullivan [id number] Krysta Sullivan 06/11/2023 1 [facility] [id number] Krysta Sullivan [id number] Krysta Sullivan Notes Date Note Type Note Provider Name and Address Organization Details Recorded Time 01/08/2023 text/html hypertension doi ng fine pressure could be a little better David Mitchell MD [address], [place], [address], [employer] 01/17/2023 21:55:08 04/30/2023 text/html Hypertension no headache no dizziness. Hyperglycemia needs A1c. Anxiety with some ADD tendencies David Mitchell MD [address], [place], [address], [employer] 04/30/2023 22:59:03 06/11/2023 text/html Fluoxetine worki ng great no side effects. Hypertension carvedilol blood pressure 120/84Obesity 5 lb weight loss David Mitchell MD [address] [facility], [facility] [address], [place], [address], [facility] [employer] [facility] 06/11/2023 14:13:53 OBGyn Episode No OBEpisode recorded.
--- OUTSIDE RECORDS SUMMARY | 2025-01-07 09:35 | XMS_ITS | Clinical Summary ---
Author Organization [facility] Address [address] [place] [address] Care Team Providers Care Life Insurance Actuary Name Role Phone David Mitchell MD Primary Care Provider [phone] Source Comments [employer] [facility],non-owned Affiliates and Associated Physician Practices is amultiple site organization consisting of ambulatory clinics and hospital sitesin [place], [place], [place] and [place]. This disclosure is being madepursuant to the Care Everywhere program and may not contain all information available regarding this patient. Last updated 18.[employer] [facility] Allergies No known active allergies Medications * Be aware that medications may not be up to date on this document. Alwaysverify current medications with the patient. No known medications Social History Tobacco Use Types Packs/Day Years Used Date Smoking Tobacco: Never Smokeless Tobacco: Never Comments No Sex and Gender Information Value Date Recorded Sex Assigned at Not on file Legal Sex Female 9:08 AM CDT Gender Identity Not on file Sexual Orientation Not on file Last Filed Vital Signs Vital Sign Reading Time Taken Comments Blood Pressure 122/74 02/24/2018 9:03 AM CDT Pulse 87 02/24/2018 9:03 AM CDT Temperature 36.9 C (98.4 F) 02/24/2018 9:03 AM CDT Respiratory Rate 16 02/24/2018 9:03 AM CDT Oxygen Saturation 99% 02/24/2018 9:03 AM CDT Inhaled Oxygen Concentration - - Weight 124.7 kg (275 lb) 02/24/2018 9:03 AM CDT Height 167.6 cm (5' 6 ) 02/24/2018 9:03 AM CDT Body Mass Index 44.39 02/24/2018 9:03 AM CDT Plan of Treatment Health Maintenance Due Date Last Done Comments PAP SMEAR 1995 HIV SCREENING 2010 HEPATITIS C SCREENING 01/16/2013 DTAP/TDAP/TD VACCINES (1 - Tdap) 2014 HEPATITIS B VACCINE (1 of 3 - 19+ 3-dose series) 2014 COVID-19 VACCINE (1 - 2023-2 5 season) 2024 DEPRESSION SCREENING 09/28/2024 INFLUENZA VACCINE (Season Ended) 2025 ZOSTER VACCINE (1 of 2) 2045 HIB VACCINE Aged Out No longer eligi ble based on patient's age to complete this topic HPV VACCINE Aged Out No longer eligi ble based on patient's age to complete this topic MENINGOCOCCAL (Group B) VACC INE SHARED DECISION-MAKING Aged Out No longer eligibl e based on patient's age to complete this topic MENINGOCOCCAL GROUPS A/C/Y/W VACCINE Aged Out No longer eligible b ased on patient's age to complete this topic PNEUMOCOCCAL VACCINE Aged Out No long er eligible based on patient's age to complete this topic Insurance [facility] [place] [address] Care Teams Life Insurance Actuary Relationship Specialty Start Date End Date David Mitchell MD PCP - General Internal Medicine 02/04/18
[2025-01-07 10:15] LABS: Basophils Absolute Auto 0.1 K/mm3 (0.0-0.1); Basophils Percent Auto 0.6 % (0.2-1.2); Eosinophils Absolute Auto 0.2 K/mm3 (0-0.3); Eosinophils Percent Auto 2.6 % (0-4.4); Hematocrit 43.9 % (37.0-47.0); Hemoglobin 14.1 g/dL (12.0-15.0); Immature Granulocyte Absolute 0.03 K/mm3 (0.00-0.031); Immature Granulocyte Percent A 0.4 % (0-0.5); Lymphocytes Absolute Auto 1.95 K/mm3 (0.9-3.2); Lymphocytes Percent Auto 25.3 % (18.3-44.2); Mean Corpuscular HGB Conc 32.1 g/dl (32-36); Mean Corpuscular Hemoglobin 28.3 pg (26-34); Mean Corpuscular Volume 88.2 fl (80-100); Mean Platelet Volume 10.9 fl (7.4-10.4); Monocytes Absolute Auto 0.4 K/mm3 (0.1-0.6); Monocytes Percent Auto 5.6 % (2.6-8.5); Neutrophils Absolute Auto 5.1 K/mm3 (1.3-6.7); Neutrophils Percent Auto 65.5 % (45.5-73.1); Platelet Count Result 302 k/mm3 (150-375); Red Blood Count 4.98 M/mm3 (4.2-5.4); Red Cell Distribution Width 13.1 % (11.5-14.5); White Blood Count 7.7 K/mm3 (4.5-10.0)
[2025-01-07 10:35] LABS: Alanine Aminotransferase 18 U/L (6-35); Albumin Level 4.1 g/dL (3.5-5.1); Alkaline Phosphatase 102 U/L (38-126); Anion Gap 6 mmol/L (4-12); Aspartate Amino Transferase 20 U/L (14-36); Bilirubin,Total 0.6 mg/dL (0.2-1.3); Blood Urea Nitrogen 8 mg/dL (7-17); Calcium 8.8 mg/dL (8.4-10.2); Carbon Dioxide 28 mmol/L (22-30); Chloride 104 mmol/L (98-107); Cholesterol 187 mg/dL (0-200); Estimated Glomerular Filt Rate > 60; Glucose 89 mg/dL (65-110); HDL Direct 43 mg/dL; Sodium 138 mmol/L (137-145); Triglycerides 81 mg/dL (<150)
[2025-01-07 10:46] LABS: LDL Cholesterol Direct 117 mg/dL
[2025-01-07 10:57] LABS: Hemoglobin A1C 5.2 % (<5.7)
== END 2025-01-07 09:31 | disposition home or self-care (01) ==
PROVIDERS: PCP Internal Medicine; Visit Provider Internal Medicine
DX: I10 Essential (primary) hypertension (principal)
CPT/HCPCS: 36415; 80053; 80061; 83036; 85025